=== PATIENT | male | born 1995 | race Hispanic/Latino ===

== ENCOUNTER 2019-11-01 16:33 | Emergency (ER) | payer OTHER ==
[~2019-11-01] VITALS: Ht 170.2 cm; Wt 93.2 kg
[2019-11-01] MEDS ORDERED: dayquil (16:39)
[2019-11-01 21:23] LABS: INFLUENZA A AMPLIFICATION NEGATIVE (NEGATIVE); INFLUENZA B AMPLIFICATION POSITIVE (NEGATIVE)
[2019-11-01] MEDS ORDERED: ONDA4TAB6 PO (21:38)
[2019-11-01 21:46] VITALS: BP 125/60
== END 2019-11-01 21:45 | disposition home or self-care (01) ==
LOC: M ED 16:33
DX: J10.1 Influenza due to other identified influenza virus with other respiratory manifestations (principal)